=== PATIENT | female | born 1980 | race African-American/Black ===

== ENCOUNTER 2022-11-13 13:26 | Emergency (ER) | payer OTHER ==
[~2022-11-13] VITALS: Ht 160 cm; Wt 81.6 kg
[2022-11-13 13:38] VITALS: BP 137/93; TEMP 98.8
== END 2022-11-13 14:40 | disposition home or self-care (01) ==
LOC: ED 13:26
DX: M62.830 Muscle spasm of back (principal); M54.10 Radiculopathy, site unspecified
CPT/HCPCS: 96372; 99283; J1885; J2930

== ENCOUNTER 2022-11-25 10:57 | Outpatient (CLI) | payer OTHER | END 2022-11-25 19:16 | disposition home or self-care (01) | LOC: RAD 10:57 | PROVIDERS: ATTEND Nurse Practitioner Family | DX: M79.601 Pain in right arm (principal) ==

== ENCOUNTER 2023-04-07 21:19 | Emergency (ER) | payer OTHER ==
[~2023-04-07] VITALS: Ht 160 cm; Wt 65.3 kg
[2023-04-07 21:19] VITALS: BP 119/73; TEMP 98.5
[2023-04-07 22:14] LABS: PLATELET COUNT 186 K/uL (152-353)
== END 2023-04-07 23:35 | disposition home or self-care (01) ==
LOC: ED 21:19
PROVIDERS: Family Medicine
DX: K59.00 Constipation, unspecified (principal)
CPT/HCPCS: 36415; 80053; 81002; 85027; 99283; Q9963

== ENCOUNTER 2023-12-20 08:31 | Outpatient (CLI) | payer BC | END 2023-12-20 19:01 | disposition home or self-care (01) | LOC: MAMMO 08:31 | PROVIDERS: ATTEND Nurse Practitioner Family | DX: Z12.31 Encounter for screening mammogram for malignant neoplasm of breast (principal) ==